=== PATIENT | female | born 1995 | race Caucasian/White ===

== ENCOUNTER 2020-01-19 17:38 | Emergency (ER) | payer SELFPAY ==
[2020-01-19 18:00] VITALS: BP 144/95; PULSE 70; RESP 20; TEMP 37.2; O2SAT 99
--- NOTE | 2020-01-19 18:04 | ED_ITS ---
HPI - General Adult General Chief complaint: Syncope Stated complaint: went unconscious this morning Time Seen by Provider: 01/19/20 18:02 History of Present Illness HPI narrative: 24-year-old woman with no significant past medical history presents with an episode of ?passing out? this morning. 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 She was breathing. It took approximately 20 minutes of significant stimulation for her to wake up and she had some retrograde amnesia. There is no evidence of tongue biting and she was not incontinent of bowel or bladder. Related Data Previous Rx's Medication Instructions Recorded clotrimazole 1 applictn TOP BID 30 Days #28 gram 01/19/20 Allergies Allergy/AdvReac Type Severity Reaction Status Date / Time amoxicillin [AMOXICILLIN] Allergy Unknown Verified 11/10/19 12:05 Penicillins Allergy Verified 01/19/20 18:05 Review of Systems Constitutional Constitutional: Denies anorexia, Denies body ache(s), Denies chills, Denies excessive sweating, Denies fatigue, Denies fever(s), Denies frequent falls, Denies headache(s), Denies lethargy, Denies malaise, Denies night sweats, Denies weakness, Denies weight gain and Denies weight loss Eyes Eyes: Denies blurry vision, Denies diplopia, Denies dry eyes, Denies loss of peripheral vision, Denies loss of vision and Denies photophobia ENT Ears, Nose, Mouth, and Throat: Denies dry mouth, Denies headache(s), Denies epistaxis, Denies disequilibrium and Denies sore throat Cardiovascular Cardiovascular: Denies chest pain, Denies edema, Denies irregular heart rhythm, Denies lightheadedness, Denies palpitations, Denies dyspnea and Reports orthopnea Respiratory Respiratory: Denies cough, Denies dyspnea and Denies wheezing Gastrointestinal Gastrointestinal: Denies abdominal pain, Denies bloating, Denies constipation, Denies dyspepsia and Denies diarrhea Genitourinary Genitourinary: Denies difficulty urinating and Denies dysuria Genitourinary: Denies dysuria, Denies vaginal discharge and Denies vaginal odor Comments: finishing menses currently. Not using control, single partner and would be OK Musculoskeletal Musculoskeletal: Denies abnormal gait, Denies arthralgias, Denies myalgias, Denies joint swelling, Denies limited range of motion, Denies muscle weakness, Denies myalgias and Reports numbness (in the right index finger intermittently) Integumentary/Breasts Skin/Breast: Denies bleeding lesions and Reports non-healing lesions (right great toe with scaling and vessicular lesions that wax and wane) Neurologic Neurologic: Denies abnormal gait, Denies behavioral changes, Denies confusion, Denies frequent falls, Denies headache(s), Denies localized weakness, Denies loss of vision, Reports numbness (in the right index finger intermittently), Denies other visual disturbances, Denies seizure-like activity, Denies sensory deficit, Denies disequilibrium and Denies weakness Comments: post event amnesia. Apparantly talked with her mom on the phone after she woke up this am and she has no memory of the discussion Psychiatric Psychiatric: Denies anxiety, Denies behavioral changes, Denies confusion, Denies depression and Denies panic attacks Endocrine Endocrine: Denies excessive sweating, Denies fatigue and Denies palpitations Hematologic/Lymphatic Hematologic/Lymphatic: Reports other Comments: notes very faint petechial type change to wrists/thenar eminence. 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 Able to give a complete and coherent history. Well-nourished well-developed HEENT: Moist mucous membranes, normal sclera with reactive pupils, Neck: No JVD, supple Respiratory: Lungs are clear to auscultation, no wheezing no rales no rhonchi. Full and symmetrical air movement Cardiac: Regular rate and rhythm no murmurs with careful auscultation no bruits Abdomen: Soft nontender good bowel tones, no flank pain Skin: Warm and dry, very minor petechial rashes over the distal wrist thenar eminence bilaterally more consistent with healing bruise or trauma rather than vascular. Right great toe with scaling peeling some skin breakdown vesicular lesions over the 1st metatarsal joint and petechial lesions over the tip of the toe. There are no other splinter hemorrhages or petechial lesions noted fingers or toenails Neurologic: Grossly neurologically intact with no obvious asymmetries or abnormalities. 3+ patellar, ankle jerks and biceps radialis reflexes Extremities: No trauma, well perfused Psych: Cooperative, appropriate insight and affect Initial Vital Signs Initial Vital Signs: Vital Signs Temperature 98.9 F 01/19/20 18:00 Pulse Rate 70 01/19/20 18:00 Respiratory Rate 20 01/19/20 18:00 Blood Pressure 144/95 H 01/19/20 18:00 Pulse Oximetry 99 01/19/20 18:00 Course Orders Ordered: ED Orders 01/19/20 18:20 XR chest 1V Stat 01/19/20 18:30 Complete Blood Count AUTO DIFF Stat Comprehensive Metabolic Panel Stat D Dimer Stat Erythrocyte Sedimentation Rate Stat Lactate (Lactic Acid) Stat Magnesium Stat Procalcitonin Stat Troponin I Stat 01/19/20 18:42 Urinalysis and Microscopic Stat Urine Drug Screen, Rapid Stat 01/19/20 19:09 Blood Culture Stat Hepatitis Acute Panel Stat Vital Signs Vital signs: Vital Signs - 8 hr 01/19/20 18:00 Temperature 98.9 F Pulse Rate 70 Respiratory Rate 20 Blood Pressure 144/95 H Pulse Oximetry 99 Medical Decision Making Medical Records Medical records reviewed: Yes I reviewed the patient's medical records. Lab Data Lab results reviewed: Yes I reviewed the patient's lab results. Result diagrams: 01/19/20 18:30 01/19/20 18:30 Labs: Lab Results 01/19/20 01/19/20 01/19/20 Range/Units 18:30 18:30 18:30 WBC 6.8 (4.5-11.0) X10^3/uL RBC 4.52 (4.0-5.2) X10^6/uL Hgb 14.0 (12.0-16.0) g/dL Hct 39.8 (36-46) % MCV 88.0 (80-100) fL MCH 31.0 (26-34) PG MCHC 35.2 (30-36) % RDW 14.0 (11.6-14.8) % Plt Count 264 (150-400) X10^3/uL Neut % (Auto) 64.1 (50-75) % Lymph % (Auto) 24.1 L (25-40) % [place] % (Auto) 9.5 (3-14) % Eos % (Auto) 1.6 L (2-4) % Baso % (Auto) 0.7 (0-2) % Neut # (Auto) 4400 (5533-9221) /uL Lymph # (Auto) 1600 (4087-4541) /uL [place] # (Auto) 600 (0-900) /uL Eos # (Auto) 100 (0-450) /uL Baso # (Auto) 0 (0-100) /uL ESR 4 (0-20) MM/HR D-Dimer < 200 (<230) ng/mL Sodium (137-145) mmol/L Potassium (3.4-5.1) mmol/L Chloride (98-107) mmol/L Carbon Dioxide (22-32) mmol/L BUN (7-17) mg/dL Creatinine (0.52-1.04) mg/dL Estimated GFR (>60) mL/min BUN/Creatinine Ratio (6-22) Glucose (70-100) mg/dL Lactate (0.7-2.1) mmol/L Calcium (8.4-10.2) mg/dL Magnesium (1.6-2.3) mg/dL Total Bilirubin (0.2-1.3) mg/dL AST (14-36) IU/L ALT (<35) IU/L Alkaline Phosphatase (38-126) U/L Troponin I (0.01-0.034) ng/mL Total Protein (6.3-8.2) g/dL Albumin (3.5-5.0) g/dL Globulin (1.7-4.1) g/dL Albumin/Globulin Ratio (1.0-2.8) Procalcitonin (<0.5) ng/mL Urine Color Urine Appearance Urine pH (4.5-8.0) Ur Specific [place] (1.000-1.035) Urine Protein (Negative) Urine Glucose (UA) (Negative) g/dL Urine Ketones (NEGATIVE) Urine Occult Blood (Negative) Urine Nitrate (Negative) Urine Bilirubin (NEGATIVE) Urine Urobilinogen (0.2) E.U./dL Ur Leukocyte Esterase (NEGATIVE) Urine RBC (0-5/HPF) Urine WBC (0-5/HPF) Ur Squamous Epith Cells (0-5/HPF) Urine Bacteria (None) Urine Mucus (Negative) Ur Culture Indicated? U Opiates 300ng/mL cut (Negative) Ur Oxycodone Screen (Negative) Urine Methadone Screen (Negative) Ur Barbiturates Screen (Negative) U Tricyclic Antidepress (Negative) Ur Phencyclidine Scrn (Negative) Ur Amphetamines Screen (Negative) U Methamphetamines Scrn (Negative) Ur MDMA Scrn (Ecstasy) (Negative) U Benzodiazepines Scrn (Negative) Urine Cocaine Screen (Negative) U Marijuana (THC) Screen (Negative) 01/19/20 01/19/20 01/19/20 Range/Units 18:30 18:30 18:30 WBC (4.5-11.0) X10^3/uL RBC (4.0-5.2) X10^6/uL Hgb (12.0-16.0) g/dL Hct (36-46) % MCV (80-100) fL MCH (26-34) PG MCHC (30-36) % RDW (11.6-14.8) % Plt Count (150-400) X10^3/uL Neut % (Auto) (50-75) % Lymph % (Auto) (25-40) % [place] % (Auto) (3-14) % Eos % (Auto) (2-4) % Baso % (Auto) (0-2) % Neut # (Auto) (1759-9969) /uL Lymph # (Auto) (3237-5159) /uL [place] # (Auto) (0-900) /uL Eos # (Auto) (0-450) /uL Baso # (Auto) (0-100) /uL ESR (0-20) MM/HR D-Dimer (<230) ng/mL Sodium 138 (137-145) mmol/L Potassium 4.1 (3.4-5.1) mmol/L Chloride 105 (98-107) mmol/L Carbon Dioxide 23 (22-32) mmol/L BUN 12 (7-17) mg/dL Creatinine 0.74 (0.52-1.04) mg/dL Estimated GFR > 60.0 (>60) mL/min BUN/Creatinine Ratio 16.2 (6-22) Glucose 91 (70-100) mg/dL Lactate 1.1 (0.7-2.1) mmol/L Calcium 9.9 (8.4-10.2) mg/dL Magnesium 1.8 (1.6-2.3) mg/dL Total Bilirubin 0.3 (0.2-1.3) mg/dL AST 157 H (14-36) IU/L ALT 183 H (<35) IU/L Alkaline Phosphatase 79 (38-126) U/L Troponin I < 0.012 (0.01-0.034) ng/mL Total Protein 8.1 (6.3-8.2) g/dL Albumin 5.1 H (3.5-5.0) g/dL Globulin 3.0 (1.7-4.1) g/dL Albumin/Globulin Ratio 1.7 (1.0-2.8) Procalcitonin < 0.05 (<0.5) ng/mL Urine Color Urine Appearance Urine pH (4.5-8.0) Ur Specific [place] (1.000-1.035) Urine Protein (Negative) Urine Glucose (UA) (Negative) g/dL Urine Ketones (NEGATIVE) Urine Occult Blood (Negative) Urine Nitrate (Negative) Urine Bilirubin (NEGATIVE) Urine Urobilinogen (0.2) E.U./dL Ur Leukocyte Esterase (NEGATIVE) Urine RBC (0-5/HPF) Urine WBC (0-5/HPF) Ur Squamous Epith Cells (0-5/HPF) Urine Bacteria (None) Urine Mucus (Negative) Ur Culture Indicated? U Opiates 300ng/mL cut (Negative) Ur Oxycodone Screen (Negative) Urine Methadone Screen (Negative) Ur Barbiturates Screen (Negative) U Tricyclic Antidepress (Negative) Ur Phencyclidine Scrn (Negative) Ur Amphetamines Screen (Negative) U Methamphetamines Scrn (Negative) Ur MDMA Scrn (Ecstasy) (Negative) U Benzodiazepines Scrn (Negative) Urine Cocaine Screen (Negative) U Marijuana (THC) Screen (Negative) 01/19/20 01/19/20 Range/Units 18:42 18:42 WBC (4.5-11.0) X10^3/uL RBC (4.0-5.2) X10^6/uL Hgb (12.0-16.0) g/dL Hct (36-46) % MCV (80-100) fL MCH (26-34) PG MCHC (30-36) % RDW (11.6-14.8) % Plt Count (150-400) X10^3/uL Neut % (Auto) (50-75) % Lymph % (Auto) (25-40) % [place] % (Auto) (3-14) % Eos % (Auto) (2-4) % Baso % (Auto) (0-2) % Neut # (Auto) (0964-7897) /uL Lymph # (Auto) (0321-4488) /uL [place] # (Auto) (0-900) /uL Eos # (Auto) (0-450) /uL Baso # (Auto) (0-100) /uL ESR (0-20) MM/HR D-Dimer (<230) ng/mL Sodium (137-145) mmol/L Potassium (3.4-5.1) mmol/L Chloride (98-107) mmol/L Carbon Dioxide (22-32) mmol/L BUN (7-17) mg/dL Creatinine (0.52-1.04) mg/dL Estimated GFR (>60) mL/min BUN/Creatinine Ratio (6-22) Glucose (70-100) mg/dL Lactate (0.7-2.1) mmol/L Calcium (8.4-10.2) mg/dL Magnesium (1.6-2.3) mg/dL Total Bilirubin (0.2-1.3) mg/dL AST (14-36) IU/L ALT (<35) IU/L Alkaline Phosphatase (38-126) U/L Troponin I (0.01-0.034) ng/mL Total Protein (6.3-8.2) g/dL Albumin (3.5-5.0) g/dL Globulin (1.7-4.1) g/dL Albumin/Globulin Ratio (1.0-2.8) Procalcitonin (<0.5) ng/mL Urine Color Yellow Urine Appearance Clear Urine pH 5.5 (4.5-8.0) Ur Specific [place] >=1.030 H (1.000-1.035) Urine Protein Negative (Negative) Urine Glucose (UA) Negative (Negative) g/dL Urine Ketones Trace H (NEGATIVE) Urine Occult Blood Trace-intact (Negative) Urine Nitrate Negative (Negative) Urine Bilirubin Negative (NEGATIVE) Urine Urobilinogen 0.2 (0.2) E.U./dL Ur Leukocyte Esterase Negative (NEGATIVE) Urine RBC 0-1/hpf (0-5/HPF) Urine WBC 0-1/hpf (0-5/HPF) Ur Squamous Epith Cells 0-1 /hpf (0-5/HPF) Urine Bacteria None seen (None) Urine Mucus 1+ H (Negative) Ur Culture Indicated? Cult not indicated U Opiates 300ng/mL cut Negative (Negative) Ur Oxycodone Screen Negative (Negative) Urine Methadone Screen Negative (Negative) Ur Barbiturates Screen Negative (Negative) U Tricyclic Antidepress Negative (Negative) Ur Phencyclidine Scrn Negative (Negative) Ur Amphetamines Screen Negative (Negative) U Methamphetamines Scrn Negative (Negative) Ur MDMA Scrn (Ecstasy) Negative (Negative) U Benzodiazepines Scrn Negative (Negative) Urine Cocaine Screen Negative (Negative) U Marijuana (THC) Screen Positive H (Negative) Point of Care Testing Test Results Negative Point of care testing: Point of Care Testing Test Results Negative ECG Data Attestation: I personally reviewed and interpreted this ECG as follows: Interpretation: Normal sinus rhythm at a rate of 76 Normal axis, normal intervals No acute ischemic changes MDM Narrative Medical decision making narrative: Unusual complaint of inability to be roused this morning and then retrograde amnesia after that. There is no other physical evidence to suggest a seizure disorder. There is no suggestion that there is drugs or alcohol involved. Medical workup is unrevealing and quite reassuring. Slightly elevated AST and ALT with hepatitis panel pending. I have asked her to call back for results. Should she have additional episodes, consideration of brain MRI, EEG and neurologic consult would be part of the next steps in my workup Incidental athlete's foot, will treat with clotrimazole Safe for home discharge and safe for travel up to [place] Discharge Plan Departure Patient Disposition: Home Clinical Impression: Altered mental status Qualifiers: Altered mental status type: transient alteration of awareness Qualified Code( s): R40.4 - Transient alteration of awareness Instructions: DI for Syncope in Adults (Fainting), DI for Athlete's Foot Activity Restrictions/Additional Instructions: Thank you for coming in today Your story is quite interesting. We did a thorough workup in the emergency room and there is a number of things that you clearly do not have, including stroke, brain infection, heart attack, blood clot in your lungs, pneumonia, drug toxicity. Things that are far less likely based on your clinical exam include brain tumor, multiple sclerosis and seizure. The 1 finding that was slightly abnormal was your liver enzyme tests. Minor viral infections can sometimes cause this and hepatitis infections can also cause this. I did test you for hepatitis A B and C but those results will not be available for a couple of days. Please call back to the emergency room and asked them to look up your hepatitis results for you. Assuming these studies are negative, at some point in the future you should have your liver tests checked again to make sure that they return to normal At this time, it is safe to go home. It is also safe for you to continue your plans for working in [place] this summer. If you have recurrent symptoms before you leave or new or different symptoms developing, please feel free to return to the emergency room for further evaluation. I hope you have a great trip to [place] Prescriptions: New clotrimazole 1 % cream 1 applictn TOP BID 30 Days Qty: 28 RF: 0
--- NOTE | 2020-01-19 18:20 | DI.RAD.S_ITS ---
PROCEDURE: XR CHEST 1V INDICATIONS: syncope TECHNIQUE: One view of the chest was acquired. COMPARISON: None. FINDINGS: Surgical changes and devices: None. Lungs and pleura: Lungs are clear. No pleural effusions or pneumothorax. Mediastinum: Mediastinal contours appear normal. Heart size is normal. Bones and chest wall: No suspicious bony lesions. Overlying soft tissues appear unremarkable. IMPRESSION: No acute cardiopulmonary disease process. Dictated by: Fabiola Kirk MD, PhD on 01/19/2020 at 18:50 Approved by: Fabiola Kirk MD, PhD on 01/19/2020 at 18:50
[2020-01-19 18:37] LABS: Add Manual Diff / Slide Review NO; Basophils Absolute Auto 0 /uL (0-100); Basophils Percent Auto 0.7 % (0-2); Eosinophils Absolute Auto 100 /uL (0-450); Eosinophils Percent Auto 1.6 % (2-4); Hematocrit 39.8 % (36-46); Lymphocytes Absolute Auto 1600 /uL (1100-4500); Lymphocytes Percent Auto 24.1 % (25-40); Mean Corpuscular HGB Conc 35.2 % (30-36); Monocytes Absolute Auto 600 /uL (0-900); Monocytes Percent Auto 9.5 % (3-14); Neutrophils Absolute Auto 4400 /uL (1500-7000); Neutrophils Percent Auto 64.1 % (50-75); Platelet Count 264 X10^3/uL (150-400); Red Blood Cell Count 4.52 X10^6/uL (4.0-5.2); White Blood Cell Count 6.8 X10^3/uL (4.5-11.0)
[2020-01-19 18:47] LABS: Bacteria Urine None Seen
[2020-01-19 18:48] LABS: Alanine Aminotransferase 183 IU/L (<35); Albumin 5.1 g/dL (3.5-5.0); Albumin Globulin Ratio 1.7 (1.0-2.8); Alkaline Phosphatase 79 U/L (38-126); Aspartate Aminotransferase 157 IU/L (14-36); BUN Creatinine Ratio 16.2 (6-22); Bilirubin Total 0.3 mg/dL (0.2-1.3); Blood Urea Nitrogen 12 mg/dL (7-17); Calcium 9.9 mg/dL (8.4-10.2); Carbon Dioxide 23 mmol/L (22-32); Chloride 105 mmol/L (98-107); Estimated Glomerular Filt Rate > 60.0 mL/min (>60); Glucose 91 mg/dL (70-100); HEMOLYSIS 35 (0-50); Magnesium 1.8 mg/dL (1.6-2.3); Potassium 4.1 mmol/L (3.4-5.1); Sodium 138 mmol/L (137-145); Total Protein 8.1 g/dL (6.3-8.2)
[2020-01-19 18:49] LABS: Lactate (Lactic Acid) 1.1 mmol/L (0.7-2.1)
[2020-01-19 18:50] LABS: Appearance Urine UA CLEAR; Bilirubin Urine UA NEGATIVE (NEGATIVE); Color Urine UA YELLOW; Glucose Urine UA NEGATIVE (Negative); Ketones Urine UA TRACE (NEGATIVE); Leukocyte Esterase Urine UA NEGATIVE (NEGATIVE); Nitrite Urine UA NEGATIVE (Negative); Occult Blood Urine UA TRACE-INTACT (Negative); Protein Urine UA NEGATIVE (Negative); Specific Gravity Urine UA >=1.030 (1.000-1.035); Urobilinogen Urine UA 0.2 E.U./dL (0.2)
[2020-01-19 18:50] LABS: D Dimer < 200 ng/mL (<230)
[2020-01-19 18:57] LABS: UR Morphine/Opiate cutoff 300 Negative (Negative); Ur Creatinine Normal (Normal); Ur Specific Gravity Normal (Normal); Urine Amphetamines Negative (Negative); Urine Barbiturates Negative (Negative); Urine Benzodiazepines Negative (Negative); Urine Cocaine Negative (Negative); Urine MDMA Negative (Negative); Urine Methadone Negative (Negative); Urine Methamphetamines Negative (Negative); Urine Oxycodone Negative (Negative); Urine Phencyclidine Negative (Negative); Urine Tetrahydrocannabinol Positive (Negative); Urine Tricyclic Antidepressant Negative (Negative); Urine pH Normal (Normal); pH Urine UA 5.5 (4.5-8.0)
[2020-01-19 19:00] LABS: Troponin I < 0.012 ng/mL (0.01-0.034)
[2020-01-19 19:03] LABS: Culture Indicated Urine Cult Not Indicated; Mucus Urine 1+ (Negative); RBC Urine 0-1/HPF (0-5/HPF); Squamous Epithelial Cell Urine 0-1 /HPF (0-5/HPF); WBC Urine 0-1/HPF (0-5/HPF)
[2020-01-19 19:14] LABS: Procalcitonin < 0.05 ng/mL (<0.5)
[2020-01-19 19:19] LABS: Erythrocyte Sedimentation Rate 4 MM/HR (0-20)
[2020-01-19 20:06] VITALS: BP 136/74; PULSE 88; RESP 16; TEMP 36.3; O2SAT 99
[2020-01-21 00:35] LABS: HBsAg Screen Negative (Negative); Hepatitis A Antibody IgM Negative (Negative); Hepatitis B Core Antibody IgM Negative (Negative); Hepatitis C Antibody 0.1 s/co ratio (0.0-0.9)
== END 2020-01-19 20:06 | disposition home or self-care (01) ==
PROVIDERS: Emergency Provider Emergency Medicine
DX: R40.4 Transient alteration of awareness (principal); R20.0 Anesthesia of skin
CPT/HCPCS: 36415; 71045; 80053; 80074; 80305; 81001; 81025; 83605; 83735; 84145; 84484; 85025; 85379; 85651; 87040; 93005; 93010; 99284